=== PATIENT | male | born 1955 | race African-American/Black ===

== ENCOUNTER 2020-05-11 16:38 | Emergency (ER) | payer OTHER, SELFPAY ==
[2020-05-11 17:10] VITALS: BP 132/86; PULSE 72; RESP 16; TEMP 36.6; O2SAT 99
--- NOTE | 2020-05-11 17:22 | ECG_ITS ---
Measurements Intervals [place] Rate: 63 P: 40 FL: 162 QRS: 4 QRSD: 85 T: 41 QT: 392 QTc: 404 Interpretive Statements SINUS RHYTHM CANNOT RULE OUT SEPTAL INFARCT, AGE INDETERMINATE NONSPECIFIC T-WAVE ABNORMALITY- INF/LAT LEADS ABNORMAL ECG Electronically Signed On 05-11-2020 17:42:55 CDT by Torrey Nielsen D.O.
[2020-05-11 17:41] LABS: Basophils Percent Auto 0.7 % (0.2-1.2); Eosinophils Percent Auto 0.7 % (0-4.4); Hematocrit 44.6 % (42.0-52.0); Hemoglobin 15.3 g/dL (14.0-18.0); Immature Granulocyte Absolute 0.02 K/mm3 (0.00-0.031); Immature Granulocyte Percent A 0.3 % (0-0.5); Lymphocytes Absolute Auto 1.08 K/mm3 (0.9-3.2); Lymphocytes Percent Auto 18.2 % (18.3-44.2); Mean Corpuscular HGB Conc 34.3 g/dl (32-36); Mean Corpuscular Hemoglobin 29.5 pg (26-34); Mean Corpuscular Volume 86.1 fl (80-100); Mean Platelet Volume 9.6 fl (7.4-10.4); Monocytes Absolute Auto 0.2 K/mm3 (0.1-0.6); Neutrophils Absolute Auto 4.5 K/mm3 (1.3-6.7); Neutrophils Percent Auto 76.1 % (45.5-73.1); Platelet Count Result 260 k/mm3 (150-375); Red Blood Count 5.18 M/mm3 (4.6-6.20); Red Cell Distribution Width 13.2 % (11.5-14.5)
[2020-05-11 17:58] LABS: Blood Urea Nitrogen 13 mg/dL (9-20); Calcium 9.6 mg/dL (8.4-10.2); Carbon Dioxide 31 mmol/L (22-30); Chloride 103 mmol/L (98-107); Estimated CRCL calculation 51 ml/min; Estimated Glomerular Filt Rate > 60; Glucose 101 mg/dL (75-110); Potassium 4.4 mmol/L (3.4-5.0); Sodium 140 mmol/L (137-145)
--- NOTE | 2020-05-11 19:58 | ED.DIZZY ---
HPI - Dizziness General Chief Complaint: Dizziness Stated Complaint: DIZZY, VERTIGO Time Seen by Provider: 05/11/20 19:36 History of Present Illness HPI Narrative: Patient is a 65-year-old male who presents ER with dizziness. Has history of dizziness has been remittent for years. Today the dizziness has been intermittent but more severe than typical. Associate with nausea and sweats at times. No focal weakness in arm or leg. Reports he has tried moving his eyes back and forth to see if it improves his symptoms but it does not. Symptoms are worse with leaning forward or turning his head side to side. No recent sinus congestion or shortness of breath. He has had no pressure in his ears or ringing in his ears. Related Data Allergies Allergy/AdvReac Type Severity Reaction Status Date / Time No Known Allergies Allergy Unverified 04/19/18 10:31 Review of Systems Review of Systems: All systems reviewed & are unremarkable except as noted in HPI and below Constitutional: Constitutional: Denies chills, Denies fever(s) and Denies weakness ENT: Denies vertigo, Reports dizziness, Denies nasal congestion and Denies sore throat Respiratory: Respiratory: Denies cough and Denies dyspnea PMFSH Past Medical History Medical History (Updated 05/11/20 @ 21:10 by Ga Contreras MD) Vertigo Surgical History Surgical History (Updated 05/11/20 @ 20:00 by Ga Contreras MD) No pertinent past surgical history Social History Social History (Updated 05/11/20 @ 20:00 by Ga Contreras MD) Smoking status: Never smoker Exam Narrative: Exam Narrative: GENERAL: Well-appearing, well-nourished, and in no acute distress. HEAD: Normocephalic, atraumatic. EYES: PERRL and EOMI. ENT: Mucous membranes moist. TMs normal bilaterally with your canals free of cerumen. CHEST: Clear to auscultation. No respiratory distress. HEART: Regular rate and rhythm. Normal peripheral pulses. EXTREMITIES: Normal range of motion. No edema. NEURO: No upper or lower extremity drift. Normal brkruu-ej-spvo testing and urdl-od-joff testing. Alert and oriented x3. PSYCH: Normal mood and affect. Course Course Emergency Course: Patient feels much better with meclizine. Discharge home. Vital Signs Vital signs: Vital Signs Temperature 97.9 F 05/11/20 17:10 Pulse Rate 72 05/11/20 17:10 Respiratory Rate 16 05/11/20 17:10 Blood Pressure 132/86 05/11/20 17:10 Pulse Oximetry 99 05/11/20 17:10 Temperature 97.9 F 05/11/20 17:10 Pulse Rate 89 05/11/20 20:03 Respiratory Rate 17 05/11/20 20:03 Blood Pressure 135/85 05/11/20 20:03 Pulse Oximetry 98 05/11/20 20:03 MDM - Dizziness Lab Data Result diagrams: 05/11/20 17:35 05/11/20 17:35 Labs: Lab Results 05/11/20 05/11/20 Range/Units 17:35 17:35 WBC 6.0 (4.5-10.0) K/mm3 RBC 5.18 (4.6-6.20) M/mm3 Hgb 15.3 (14.0-18.0) g/dL Hct 44.6 (42.0-52.0) % MCV 86.1 (80-100) fl MCH 29.5 (26-34) pg MCHC 34.3 (32-36) g/dl RDW 13.2 (11.5-14.5) % Plt Count 260 (150-375) k/mm3 MPV 9.6 (7.4-10.4) fl Immature Gran % (Auto) 0.3 (0-0.5) % Neut % (Auto) 76.1 H (45.5-73.1) % Lymph % (Auto) 18.2 L (18.3-44.2) % [place] % (Auto) 4.0 (2.6-8.5) % Eos % (Auto) 0.7 (0-4.4) % Baso % (Auto) 0.7 (0.2-1.2) % Lymph # (Auto) 1.08 (0.9-3.2) K/mm3 [place] # (Auto) 0.2 (0.1-0.6) K/mm3 Eos # (Auto) 0.0 (0-0.3) K/mm3 Baso # (Auto) 0.0 (0.0-0.1) K/mm3 Abs Immat Gran (auto) 0.02 (0.00-0.031) K/mm3 Absolute Neuts (auto) 4.5 (1.3-6.7) K/mm3 Absolute Nucleated RBC 0.0 (0.0-0.012) K/mm3 Nucleated RBC % 0.0 (0.0-0.2) % Sodium 140 (137-145) mmol/L Potassium 4.4 (3.4-5.0) mmol/L Chloride 103 (98-107) mmol/L Carbon Dioxide 31 H (22-30) mmol/L BUN 13 (9-20) mg/dL Creatinine 1.10 (0.7-1.3) mg/dL Estim Creat Clear Calc 51 ml/min Estimated GFR > 60 (59 - )
[2020-05-11 20:03] VITALS: BP 135/85; PULSE 89; RESP 17; O2SAT 98
[2020-05-11] MEDS: MECLIZINE HCL 25 MG TABLET PO (20:03)
[2020-05-11 20:45] VITALS: BP 130/79; PULSE 70; RESP 16; O2SAT 99
[2020-05-11 21:40] VITALS: BP 128/79; PULSE 67; RESP 14; O2SAT 100
== END 2020-05-11 21:40 | disposition home or self-care (01) ==
PROVIDERS: Emergency Medicine; Emergency Provider Emergency Medicine
DX: H81.10 Benign paroxysmal vertigo, unspecified ear (principal); R94.31 Abnormal electrocardiogram [ECG] [EKG]
CPT/HCPCS: 36415; 80048; 85025; 93005; 99284; A9270